=== PATIENT | female | born 1940 | race Caucasian/White ===

== ENCOUNTER 2024-02-20 13:30 | Emergency (ER) | payer MEDICARE, OTHER, SELFPAY ==
[2024-02-20 13:38] VITALS: BP 165/100
[2024-02-20] MEDS: DECADRON 10 MG PO (15:22)
--- NOTE | 2024-02-20 15:37 | ED.GENMED ---
History of Present Illness
General
Chief Complaint: Musculo-Skeletal Complaint
Source: patient
Exam Limitations: none
Time Seen by Provider: 02/20/24 15:04
Nursing documentation reviewed up to this point in time: agreed with
History of Present Illness
History of Present Illness:
84-year-old female With history of hypothyroidism, low blood pressure on midodrine, depression on venlafaxine. Presents stating since last p.m. she has had an frequent intermittent shooting pain in the right posterior scalp. It comes every few
minutes, feels like an electric shock and lasts for seconds. She took ibuprofen with some relief. No recollection of overuse, no history of trauma. No previous episodes. Denies any general headache, change in vision, neck pain, weakness or
numbness in her extremities, lightheadedness or dizziness.
Past History
Past History
ED Past Medical History: Hypothyroidism, Psychiatric (depression) and Other (Orthostatic Hypotension on Midodrine)
ED Past Surgical History: Gynecological
Social History
Tobacco: Non-smoker
Alcohol: Occasional
Drug: None
Personal:
Living: with family
Employment: Retired
Family History
Family History: Other (Noncontributory)
Review of Systems
Review of Systems
Allergies reviewed?: Yes
All Other Systems: ROS reviewed and negative except as documented in HPI and ROS
Constitutional: Denies fever
Respiratory: Denies trouble breathing
Cardiac: Denies chest pain
ABD/GI: Denies abdominal pain or nausea
: Denies dysuria, frequency or difficulty voiding
Musculoskeletal: Denies neck pain or back pain
Neurological: Reports other (point tender over right posterior scalp); Denies dizzy, weakness or numbness
Phy Exam
Physical Exam
Physical Exam:
GENERAL: No acute distress. A&Ox3.
CONSTITUTIONAL: Afebrile.
Head: point tender over Greater Occipital Nerve at level of mid ear. Pressure over this area immediately reproduces pain, all surrounding areas non tender.
EYES: PERRL, conjunctivae normal
Neck: Supple
ENMT: moist mucus membranes, Pharynx nl, TMs normal
RESPIRATORY: Regular respirations, nonlabored, lungs clear.
CARDIOVASCULAR: Regular rate and rhythm, no murmurs, no rubs.
GI: Soft, nontender, normal BS
MUSCULOSKELETAL: Full ROM of neck without eliciting pain, no spinal bony tenderness. Moves with ease. Well perfused.
SKIN: Warm, dry, pink. Skin of scalp is without rash
PSYCH: Normal mood and affect. Well kept, interactive and appropriate
NEUROLOGIC: Awake, alert and oriented. Speech clear. Strength equal throughout. Ambulates well with steady gait. No focal neurological deficits.
Course
Orders/Labs/Results
Orders:
Orders
02/20/24 15:14
Dexamethasone [Decadron] 10 mg PO NOW STA
02/20/24 15:50
Cervical Spine 4 or 5 Vw [CR Cervical Spine 4 Or 5 Vw] Urgent
Comment:
Reason For Exam: Occipital neuralgia
Vital Signs
Initial and Last Documented VS:
Initial Vital Signs
Temp Pulse Resp BP Pulse Ox
98.7 F 86 16 165/100 98
02/20/24 13:38 02/20/24 13:38 02/20/24 13:38 02/20/24 13:38 02/20/24 13:38
Last Documented Vital Signs
Temp Pulse Resp BP Pulse Ox
98.2 F 80 18 173/80 100
02/20/24 17:31 02/20/24 17:31 02/20/24 17:31 02/20/24 17:31 02/20/24 17:31
Procedures
Other
Indication for procedure:: Occipital Cephalgia
Procedure completed by: I Day CHILD ATTENDANT
Consent form signed: No
Additional Procedure:
After explaining the procedure to patient and obtaining verbal consent, area cleansed with alcohol wipe, usine #25 sterile needle injected 2.5 ml of Bupivicaine over the Mid Greater Occipital nerve immediately at the site of pain with palpation.
Pt tolerated procedure well.
MDM/Problems Addressed
Differential Diagnosis Includes:
occipital neuralgia/cephalgia, cervicogenic headache, migraine,
MDM/Problems Addressed:
84-year-old female With history of hypothyroidism, low blood pressure on midodrine, depression on venlafaxine. Presents stating since last p.m. she has had an frequent intermittent shooting pain in the right posterior scalp. It comes every few
minutes, feels like an electric shock and lasts for seconds. She took ibuprofen with some relief. No recollection of overuse, no history of trauma. No previous episodes. Denies any general headache, change in vision, neck pain, weakness or
numbness in her extremities, lightheadedness or dizziness.
Neuro exam is normal, pain improved after ibuprofen, no sign of CVA do not suspect central neuro etiology
Full ROM of neck without aggravating pain, pain very localized, not consistent with cervicogenic headache
Paroxysmal electric-like shooting pains are consistent with occipital neuralgia
DONAL injection w Bupivicaine
5:00 PM:
Cervical spine x-ray reveals DJD, nothing acute. Patient given copy of disc
Patient states she is feeling much better after the DONAL injection
Rx for prednisone 40 mg a day for 4 days sent to her pharmacy
*Critical Care Note
Total Time (30-74mins, 75-104mins- exclusive of procedures): Not Applicable
ED Attending Note
-
Portions of this chart may have been created with voice recognition software.� Occasional wrong word or��sound alike� substitutions may have occurred due to the inherent limitations of voice recognition software.
Discharge Plan
Departure
Patient Disposition: Home (Routine Discharge)
Date of Disposition: 02/20/24
Time of Disposition: 17:07
Patient with high blood pressure during this ER visit?: Yes
Condition: Good
Discharge Problem:
Occipital neuralgia of right side
Instructions: Headache, Adult ED
Prescriptions:
New
prednisone 20 mg tablet
40 mg PO DAILY Qty: 8 0RF
No Action
venlafaxine 150 MG capsule,extended release 24hr
150 mg PO DAILY
levothyroxine 100 MCG tablet
100 mcg PO DAILY
midodrine 2.5 MG tablet
2.5 mg PO BID
cyanocobalamin (vitamin B-12) 1,000 MCG tablet
1,000 mcg PO DAILY
loratadine-pseudoephedrine [Allergy and Congestion Relief] 1 EACH tablet extended release 24 hr
1 ea PO DAILYPRN PRN (Reason: allergies)
ascorbic acid (vitamin C) [Vitamin C] 500 MG tablet
1,000 mg PO DAILY
meclizine 25 MG tablet
25 mg PO Q8HPRN PRN (Reason: dizziness)
cholecalciferol (vitamin D3) [Vitamin D3] 25 MCG capsule
25 mcg PO DAILY
carboxymethylcellulose sodium [TheraTears] 1 EACH dropperette
3 ea OP DAILYPRN PRN (Reason: dry eyes)
fish oil-dha-epa 1 EACH capsule
1 ea PO DAILY
red yeast rice 600 MG tablet
1,200 mg PO DAILY
lactobacillus combo no.13 [Probiotic Pearls Complete] 1 EACH capsule,delayed release(DR/EC)
1 ea PO DAILY
Referrals:
Annabel White MD [Family Provider] - Follow up in 5-7 days
Activity Restrictions/Additional Instructions:
As we discussed you have Occipital Neuralgia.
I sent a prescription to your pharmacy for Prednisone to take 40 mg daily for 4 days. Start it tomorrow as you were given a steroid here today.
See your doctor for re evaluation in 5-7 days if not 100% improved
You may continue Ibuprofen 600 mg (with food) every 6 hours as needed for pain.
Interventions
Interventions:
*Risk Screen - Suicide Last Done: 02/20/24 14:16
*General Assessment Last Done: 02/20/24 14:16
*Neglect/Abuse Screening Last Done: 02/20/24 14:16
ED- Fall Risk Assessment Last Done: 02/20/24 17:04
*ED COVID-19 Vaccine History Last Done: 02/20/24 14:16
*Nursing Disposition Last Done: 02/20/24 17:31
ED-Musculoskeletal Assessment Last Done: 02/20/24 14:16
Discharge Date and Time
Discharge Date/Time: 02/20/24 17:32
Print Language: GREENLANDIC
[2024-02-20 17:31] VITALS: BP 173/80
== END 2024-02-20 17:32 | disposition home or self-care (01) ==
LOC: EMR 13:30
PROVIDERS: EMERGENCY PHYSICIAN Emergency Medicine; FAMILY PHYSICIAN Family Medicine
DX: M54.81 Occipital neuralgia (principal); E03.9 Hypothyroidism, unspecified
CPT/HCPCS: 99284; 64405; 72050

== ENCOUNTER → 2024-12-12 14:52 | Outpatient (REF) | payer MEDICARE, OTHER, SELFPAY | LOC: HWRAD 14:52 | PROVIDERS: ATTENDING PHYSICIAN Family Medicine | DX: R63.4 Abnormal weight loss (principal); R11.2 Nausea with vomiting, unspecified | CPT/HCPCS: 71046; 74176 ==

== ENCOUNTER → 2025-01-19 14:45 | Outpatient (REF) | payer MEDICARE, OTHER, SELFPAY | LOC: RAD 14:45 | PROVIDERS: ATTENDING PHYSICIAN Family Medicine | DX: N83.201 Unspecified ovarian cyst, right side (principal) | CPT/HCPCS: 76856 ==

== ENCOUNTER → 2025-01-23 14:02 | Outpatient (REF) | payer MEDICARE, OTHER, SELFPAY | LOC: RAD 14:02 | PROVIDERS: ATTENDING PHYSICIAN Family Medicine | DX: R09.89 Other specified symptoms and signs involving the circulatory and respiratory systems (principal) | CPT/HCPCS: 93922; 93925 ==